=== PATIENT | male | born 1955 | race Caucasian/White ===

== ENCOUNTER 2017-11-05 19:02 | Emergency (ER) | payer OTHER ==
[2017-11-05] MEDS ORDERED: LIDOCAINE 1% (MDV) 10 ML INJ INJ (20:12)
[2017-11-05] MEDS: DIPHTH/TET/ACEL PERTUSS (ADULT) 0.5 ML VIAL IM* (20:22)
[2017-11-05] MEDS: LIDOCAINE 1% (MPF) 30 ML INJ INJ (20:33)
== END 2017-11-05 21:31 | disposition home or self-care (01) ==
LOC: FTE 19:02
DX: S01.111A Laceration without foreign body of right eyelid and periocular area, initial encounter (principal); W50.0XXA Accidental hit or strike by another person, initial encounter; Y92.310 Basketball court as the place of occurrence of the external cause; Z23 Encounter for immunization
CPT/HCPCS: 12011; 90471; 90715; 99283-25

== ENCOUNTER 2017-11-19 14:52 | Emergency (ER) | payer OTHER | END 2017-11-19 17:31 | disposition left against medical advice (07) | LOC: FTE 14:52 | DX: Z48.02 Encounter for removal of sutures (principal) | CPT/HCPCS: 99281; Z7502 ==

== ENCOUNTER 2018-03-12 18:11 | Emergency (ER) | payer OTHER ==
[2018-03-12] MEDS: DIPHENHYDRAMINE 50 MG INJ IM (18:46)
[2018-03-12] MEDS: METHYLPREDNISOLONE 125 MG INJ IM ×2 (18:48→18:51)
== END 2018-03-12 19:40 | disposition home or self-care (01) ==
LOC: FTE 18:11
DX: L50.0 Allergic urticaria (principal)
CPT/HCPCS: 96372; 99284-25